=== PATIENT | female | born 1950 | race Caucasian/White ===

== ENCOUNTER 2018-11-28 21:44 | Emergency (ER) | payer MEDICARE ==
[~2018-11-28] VITALS: Ht 162.6 cm; Wt 70.2 kg
[2018-11-28] MEDS ORDERED: normal saline 1000ML IV soln IVB ONE (23:15)
--- NOTE | 2018-11-28 23:49 | NUR ---
PT WITH STABLE VS. REPROTS PAIN TO RLQ ABD 6 OUT OF 10 AND INITERMITTENT. AWAITING TO GO TO CT SCAN. PIV IN PLACE AND LABS DRAWN.
[2018-11-28 23:51] LABS: BASOPHILS # (AUTO) 0.1 X10'3 (0-0.2); BASOPHILS % (AUTO) 0.9 % (0-1); EOSINOPHILS # (AUTO) 0.1 X10'3 (0-0.9); EOSINOPHILS % (AUTO) 1.2 % (0-6); HEMATOCRIT 40.2 % (35.0-45.0); HEMOGLOBIN 13.7 g/dl (12.0-16.0); LYMPHOCYTES # (AUTO) 2.6 X10'3 (1.1-4.8); LYMPHOCYTES % (AUTO) 22.4 % (21-51); MEAN CORPUSCULAR HEMOGLOBIN 30.7 PG (27.0-31.0); MEAN CORPUSCULAR HGB CONC 34.2 g/dL (33.0-36.5); MEAN CORPUSCULAR VOLUME 89.7 FL (78-98); MEAN PLATELET VOLUME 7.5 FL (7.4-10.4); MONOCYTES # (AUTO) 0.8 X10'3 (0-0.9); MONOCYTES % (AUTO) 6.4 % (2-12); NEUTROPHILS # (AUTO) 8.1 X10'3 (1.8-7.7); NEUTROPHILS % (AUTO) 69.1 % (42-75); PLATELET COUNT 239 X10'3 (140-440); RED BLOOD COUNT 4.48 X10'6 (4.20-5.60); RED CELL DISTRIBUTION WIDTH 13.1 % (11.5-14.5); WHITE BLOOD COUNT 11.8 X10'3 (4.5-11.0)
[2018-11-29 01:18] LABS: ALANINE AMINOTRANSFERASE 33 U/L (12-78); ALBUMIN 3.3 G/DL (3.4-5.0); ALBUMIN/GLOBULIN RATIO 1.1 (1.1-1.5); ALKALINE PHOSPHATASE 64 IU/L (46-116); ANION GAP 11 (8-16); ASPARTATE AMINO TRANSFERASE 12 U/L (10-37); BILIRUBIN,TOTAL 0.2 MG/DL (0.1-1.0); BLOOD UREA NITROGEN 8 MG/DL (7-18); BUN/CREATININE RATIO 10.8 (6.6-38.0); CALCIUM 8.5 MG/DL (8.5-10.1); CHLORIDE 105 MMOL/L (99-107); CREATININE 0.74 MG/DL (0.40-0.90); GLUCOSE 106 MG/DL (70-104); LIPASE 86 U/L (73-393); SODIUM 145 MMOL/L (135-145); TOTAL CARBON DIOXIDE 29.3 MMOL/L (24-32); TOTAL PROTEIN 6.3 G/DL (6.4-8.2); eGFR 79 ML/MIN
[2018-11-29 01:20] LABS: POTASSIUM 2.8 MMOL/L (3.5-5.1)
[2018-11-29 01:28] LABS: OCCULT BLOOD STOOL NEGATIVE (Neg)
[2018-11-29] MEDS ORDERED: POTA20TA19 PO ×2 (01:43→01:57)
[2018-11-29 01:44] VITALS: BP 113/80
--- NOTE | 2018-11-29 01:44 | NUR ---
dr. coronado aware the pt 's k 2.8. he reports pt to be discharged soon. she will received adtl meds before dc.
[2018-11-29] MEDS ORDERED: potassium Cl 20 mEq SR tablet PO ONE (01:50)
[2018-11-29] MEDS ORDERED: magnesium oxide 400mg tablet PO ONE (01:50)
== END 2018-11-29 02:32 | disposition home or self-care (01) ==
LOC: ER 21:45
DX: K64.4 Residual hemorrhoidal skin tags (principal); E87.6 Hypokalemia; I10 Essential (primary) hypertension; I38 Endocarditis, valve unspecified; Z90.710 Acquired absence of both cervix and uterus; Z56.0 Unemployment, unspecified; Z79.899 Other long term (current) drug therapy
CPT/HCPCS: 36415; 74176; 80053; 82272; 83690; 85025; 99284; J7040